=== PATIENT | male | born 1970 | race African-American/Black ===

== ENCOUNTER 2018-11-17 05:44 | Day surgery (SDC) | payer BC ==
[2018-11-17] MEDS ORDERED: Bupivacaine/Epinephrine 0.25% 30 ML VIAL ONE (06:33)
[2018-11-17] MEDS ORDERED: CEFAZOLIN 2 GM/50 ML BAG ONE (06:33)
[2018-11-17] MEDS ORDERED: Midazolam HCl 2 mg/2 ml Vial ONE (07:09)
[2018-11-17] MEDS ORDERED: Famotidine/PF 20 mg/2ml Vial ONE (07:15)
[2018-11-17] MEDS ORDERED: Fentanyl 100 MCG/2 ML VIAL ONE ×2 (07:31→09:30)
[2018-11-17] MEDS ORDERED: Bupivacaine 0.25% HCL 30 ML VIAL ONE (08:05)
[2018-11-17] MEDS ORDERED: HYDROmorphone 2 MG/ML VIAL ONE (09:51)
[2018-11-17] MEDS ORDERED: Ketorolac Tromethamine 30 MG/ML VIAL ONE (15:17)
[2018-11-17] MEDS ORDERED: Succinylcholine Chloride 20 MG/ML 10 ml SYRINGE FS ONE (15:17)
[2018-11-17] MEDS ORDERED: Ondansetron PF 4 MG/2 ML Vial ONE (15:17)
[2018-11-17] MEDS ORDERED: Rocuronium Bromide 10 MG/ML (10ML VIAL) ONE (15:17)
[2018-11-17] MEDS ORDERED: PROPOFOL 200 MG/20 ML VIAL ONE (15:17)
[2018-11-17] MEDS ORDERED: Lidocaine 1% PF 5 ML VIAL ONE (15:17)
[2018-11-17] MEDS ORDERED: Glycopyrrolate 0.2 MG/ML 5 ML SYRINGE ONE (15:17)
[2018-11-17] MEDS ORDERED: Dexamethasone 20 MG/5 ML VIAL ONE (15:17)
--- NOTE | 2018-11-17 16:18 | OP ---
DATE OF PROCEDURE: 11/17/2018 SERVICE: Urology. PREOPERATIVE DIAGNOSIS: Right communicating hydrocele. POSTOPERATIVE DIAGNOSIS: Right noncommunicating hydrocele. PROCEDURE PERFORMED: Right hydrocelectomy in the Lord's fashion via an inguinal approach. INDICATIONS FOR PROCEDURE: Mr. Whelan is a 48-year-old black male, who presented to me with complaints of a right hydrocele, which fluctuates in size throughout the day. It is bothersome to him and he states that it causes him discomfort and is in the way, he would like this to be repaired. Given the nature of the fluctuations, I had a high suspicion that he likely had a communicating hydrocele and recommended an inguinal approach. Of note, he did have an ultrasound beforehand demonstrating that it was indeed a hydrocele and not a hernia. DESCRIPTION OF PROCEDURE: After identification of armband and verification of consent, the patient was brought back to the operating room, where he underwent general anesthesia with an LMA. He was left in the supine position and prepped and draped in usual sterile fashion. After appropriate time-out, an incision was made along Wesley's lines just cephalad to the inguinal ligament. Dissection was carried down with Bovie electrocautery through Oren's fascia, and Colles fascia up to the external oblique aponeurosis and inguinal ligament. This was dissected clear from the surrounding tissues. A small incision was made in the aponeurosis with a 15 blade and Etlan used to divide the aponeurosis up to the external ring. This demonstrated the internal oblique musculature, cremasteric muscles and spermatic cord. The ilioinguinal nerve was spared during the procedure and swept aside to avoid injury. Once the spermatic cord was isolated and evaluated, compression of the hydrocele did not fluctuate up into the groin, indicating that this was less likely to be a communicating hydrocele. To avoid making a second incision, the hydrocele sac and testicle were delivered from the scrotum up into the surgical field through the external ring, which was further open to allow passage of the hydrocele. The gubernaculum was left intact, but the majority of the hydrocele was brought up into the surgical field and the majority of the tissue swept around. Once the entire hydrocele was in the field and just the gubernacular attachment was attached at the bottom aspect of the scrotum, the hydrocele was opened, demonstrating a simple hydrocele sac with straw-colored fluid. There was one lucio within the hydrocele, which was removed. The appendix testis was also removed. There was an epididymal cyst, which was surgically dissected free of the epididymis as it was somewhat tense and it is unclear whether or not this was causing the patient discomfort. The hydrocele was then obliterated using the Lord's hydrocelectomy method using a 3-0 Vicryl to bunch up in a curtain fashion all the tunica vaginalis until the hydrocele was completely obliterated. Satisfied, the hydrocele was then gone. The testicle was then placed back into the scrotal sac with the gubernaculum still intact to keep the testicle affixed to the inferior scrotum. The scrotum and inguinal area were then copiously washed out and the excess fluid removed using suction and Ray-Tecs. A cord block was performed with 0.25% Marcaine plain. The external oblique aponeurosis was then reapproximated using a 3-0 PDS in a running fashion, taking care not to over tighten the external ring to avoid strangulation of the spermatic cord. The Oren's and Colles fascia were then closed using interrupted 2-0 Vicryl and the skin was closed with a 4-0 Monocryl in a subcuticular fashion. 0.25% Marcaine was then injected underneath the skin incision. Dermabond was then applied. The patient then had a jockstrap applied after the Dermabond was dry, awakened, and taken to PACU for recovery in stable condition. COMPLICATIONS: None. ESTIMATED BLOOD LOSS: Approximately 10 mL. RETAINED TUBES AND DRAINS: None. SPECIMENS: Epididymal cyst. DISPOSITION: The patient will be discharged home and follow up with me in approximately a week for postop check. Job ID: [id number]
== END 2018-11-17 14:00 | disposition home or self-care (01) ==
LOC: SDC 05:44
PROVIDERS: ATTEND Urology
PROC: 0VB60ZZ Excision of Right Tunica Vaginalis, Open Approach (ICD-10-PCS; principal; 2018-11-17)
DX: N43.2 Other hydrocele (principal); N50.3 Cyst of epididymis; I10 Essential (primary) hypertension; M19.90 Unspecified osteoarthritis, unspecified site; F17.210 Nicotine dependence, cigarettes, uncomplicated; Z79.899 Other long term (current) drug therapy
CPT/HCPCS: 88304; 96374; J0131; J1100; J1170; J1885; J2001; J2250; J2405; J2704; J3010; S0020; S0028